=== PATIENT | male | born 1955 | race Caucasian/White ===

== ENCOUNTER → 2017-08-20 | Outpatient (CLI) | payer OTHER ==
[~2017-08-20] MED LIST: AMLO10TA2 PO; ASPI-496 PO; ATOR20TA PO; CETI10TA18 PO; CHOL200024 PO; CYAN10005 PO; CYAN250013 PO; HYDR25TA6 PO; LIDOCAINE 2%, 20ML ONE; METO-282 PO; METO100T5 PO; MORP10SU PR; OXYC10TA6 PO; PRAV20TA2 PO; SPIR50TA2 PO; ZOLP-413 PO; ZOLP10TA PO
[2017-08-20 12:14] LABS: HEMATOCRIT 42.1 % (39.2-51.8); HEMOGLOBIN 14.6 g/dL (13.7-18.0); WHITE BLOOD COUNT 7.2 x10^3/uL (3.4-10)
[2017-08-20 12:21] LABS: ASPARTATE AMINO TRANSFERASE 21 U/L (15-37); BLOOD UREA NITROGEN 14 mg/dL (7-18)
== END | disposition home or self-care (01) ==
LOC: STAR 11:05
PROVIDERS: ATTEND Neurological Surgery
DX: Z01.818 Encounter for other preprocedural examination (principal); I10 Essential (primary) hypertension; R79.1 Abnormal coagulation profile; M47.892 Other spondylosis, cervical region
CPT/HCPCS: 36415; 71020; 80053; 85025; 85610; 85730; 93005; J3490

== ENCOUNTER 2017-08-27 11:07 | Inpatient (IN) | payer OTHER ==
[~2017-08-27] VITALS: Ht 182.9 cm; Wt 122.4 kg
[~2017-08-27 11:07] MED LIST changes: -LIDOCAINE 2%, 20ML ONE
[2017-09-10] MEDS ORDERED: LACTATED RINGERS 1,000 ML IV SCH (06:22)
[2017-09-10 06:23] VITALS: BP 118/82
[2017-09-10] MEDS ORDERED: LIDOCAINE 1%, 2ML SQ PRN (06:30)
[2017-09-10] MEDS ORDERED: EPINEPHRINE 1 MG/ML, 1ML ONE (07:06)
[2017-09-10] MEDS ORDERED: BACITRACIN 50,000 UNIT ONE (07:06)
[2017-09-10] MEDS ORDERED: BUPIVACAINE/PF 0.5% ONE (07:06)
[2017-09-10] MEDS ORDERED: THROMBIN 20,000 UNIT VIAL TP ONE (07:06)
[2017-09-10] MEDS ORDERED: KETAMINE 10 MG/ML, 20ML ONE (07:18)
[2017-09-10] MEDS ORDERED: FENTANYL PF 250 MCG/5ML ONE (07:19)
[2017-09-10] MEDS ORDERED: HYDROmorphone 1 MG/ML, 1ML ONE ×2 (07:19→10:51)
[2017-09-10] MEDS ORDERED: PROPOFOL 150 ML ONE (07:37)
[2017-09-10] MEDS ORDERED: LIDOCAINE-MPF 2% ,5ML ONE (07:43)
[2017-09-10] MEDS ORDERED: ROCURONIUM 10 MG/ML ONE (07:43)
[2017-09-10] MEDS ORDERED: PHENYLEPHRINE 10 MG/ML ONE (07:43)
[2017-09-10] MEDS ORDERED: METOCLOPRAMIDE 5 MG/ML, 2ML ONE (07:43)
[2017-09-10] MEDS ORDERED: SUCCINYLCHOLINE 20 MG/ML, 10ML ONE (07:43)
[2017-09-10] MEDS ORDERED: CEFAZOLIN 1,000 MG ONE (07:43)
[2017-09-10] MEDS ORDERED: ONDANSETRON 2MG/ML, 2ML ONE (07:43)
[2017-09-10] MEDS ORDERED: DEXAMETHASONE 4 MG/ML, 1ML ONE (07:43)
[2017-09-10] MEDS ORDERED: LABETALOL 5MG/ML, 20ML IV PRN (08:30)
[2017-09-10] MEDS ORDERED: hydrALAzine 20 MG/ML, 1ML IV PRN (08:30)
[2017-09-10] MEDS ORDERED: OXYcodone 5 MG/5 ML ORAL.SOL UDC PO PRN (08:30)
[2017-09-10] MEDS ORDERED: MIDAZOLAM 1 MG/ML, 2ML IV PRN (08:30)
[2017-09-10] MEDS ORDERED: MEPERIDINE/PF 25MG/0.5ML IVPush PRN (08:30)
[2017-09-10] MEDS ORDERED: PROMETHAZINE 25 MG/ML, 1ML IV PRN (08:30)
[2017-09-10] MEDS ORDERED: ACETAMINOPHEN 325 MG TABLET PO PRN (08:30)
[2017-09-10] MEDS ORDERED: ONDANSETRON 2MG/ML, 2ML IVPush PRN (08:30)
[2017-09-10] MEDS ORDERED: FENTANYL PF 100 MCG/2ML IV PRN (08:30)
[2017-09-10] MEDS ORDERED: PROPOFOL 50 ML ONE (09:25)
[2017-09-10] MEDS ORDERED: OXYcodone 5 MG/5 ML ORAL.SOL UDC ONE (10:50)
[2017-09-10] MEDS ORDERED: ACETAMINOPHEN 650 MG/20.3 ML UDC ONE (10:51)
[2017-09-10] MEDS ORDERED: ACETAMINOPHEN 325 MG TABLET ONE (10:51)
[2017-09-10] MEDS ORDERED: METHOCARBAMOL 1000MG/10 ML IVPB ONE (11:00)
[2017-09-10] MEDS: HYDROmorphone 1 MG/ML, 1ML IV PRN ×2 (11:00→11:05)
[2017-09-10] MEDS: DIAZEPAM 5 MG/ML, 2ML IVPush PRN ×2 (11:20→11:40)
[2017-09-10] MEDS ORDERED: METHOCARBAMOL 1,000 MG in DEXTROSE 5% 100 ML IV ONE (11:30)
[2017-09-10 12:21] VITALS: BP 103/68
[2017-09-10] MEDS ORDERED: ZOLPIDEM 10MG TABLET PO PRN (13:30)
[2017-09-10] MEDS ORDERED: DIPHENHYDRAMINE 50 MG CAPSULE PO PRN (13:30)
[2017-09-10] MEDS ORDERED: DIPHENHYDRAMINE 50 MG/ML, 1ML IM PRN (13:30)
[2017-09-10] MEDS ORDERED: MAGNESIUM HYDROXIDE 8%, 30ML UDC PO PRN (13:30)
[2017-09-10] MEDS ORDERED: ONDANSETRON 2MG/ML, 2ML IV PRN (13:30)
[2017-09-10] MEDS ORDERED: HYDROmorphone 2 MG/ML, 1ML IM PRN (13:30)
[2017-09-10] MEDS ORDERED: BISACODYL 10 MG SUPP PR PRN (13:30)
[2017-09-10] MEDS: NS + 20MEQ KCL 1,000 ML IV SCH (13:43)
[2017-09-10] MEDS: OXYcodone IR 5MG TABLET PO PRN ×2 (13:47→17:47)
[2017-09-10] MEDS: CEFAZOLIN PMX 1GM/50ML 50 ML IVPB SCH ×2 (15:23→23:18)
[2017-09-10 18:58] VITALS: BP 112/72
[2017-09-10] MEDS: METHOCARBAMOL 750 MG in DEXTROSE 5% 100 ML IV SCH (19:57)
[2017-09-10] MEDS ORDERED: ATORVASTATIN 20 MG TABLET PO SCH (21:00)
[2017-09-10] MEDS: SPIRONOLACTONE 50 MG TABLET PO SCH (21:28)
[2017-09-11] MEDS: OXYcodone IR 5MG TABLET PO PRN ×4 (00:09→15:09)
[2017-09-11] MEDS: NS + 20MEQ KCL 1,000 ML IV SCH ×2 (00:10→13:36)
[2017-09-11] MEDS: METHOCARBAMOL 750 MG in DEXTROSE 5% 100 ML IV SCH ×2 (03:49→12:33)
[2017-09-11 03:55] VITALS: BP 135/85
[2017-09-11] MEDS ORDERED: METOPROLOL SUCCINATE 100 MG TAB.ER.24H PO SCH (06:00)
[2017-09-11 07:27] VITALS: BP 113/72
[2017-09-11 08:32] VITALS: BP 115/69
[2017-09-11] MEDS: SPIRONOLACTONE 50 MG TABLET PO SCH (08:34)
[2017-09-11] MEDS ORDERED: CHOLECALCIFEROL 1,000 UNIT TABLET PO SCH (09:00)
[2017-09-11] MEDS ORDERED: CETIRIZINE 10 MG TABLET PO SCH (09:00)
[2017-09-11] MEDS ORDERED: SENNA/DOCUSATE TABLET PO SCH (09:00)
[2017-09-11] MEDS ORDERED: CYANOCOBALAMIN 1,000 MCG TABLET PO SCH (09:00)
[2017-09-11] MEDS ORDERED: AMLODIPINE 5 MG TABLET PO SCH (09:00)
[2017-09-11 14:00] VITALS: BP 99/65
[2017-09-11 16:12] VITALS: BP 118/73
[2017-09-11] MEDS ORDERED: MORP-52 PO (17:23)
[2017-09-11] MEDS ORDERED: CALC300T5 PO (17:25)
[2017-09-11] MEDS ORDERED: DOCU100C33 PO (17:26)
[2017-09-11] MEDS ORDERED: SENN-99 PO (17:27)
[2017-09-11] MEDS ORDERED: METH750T2 PO (17:27)
[2017-09-11] MEDS ORDERED: METH4TAB2 PO (17:28)
[2017-09-12] MEDS ORDERED: METHOCARBAMOL 750 MG TABLET PO SCH (19:00)
== END 2017-09-11 18:07 | disposition home or self-care (01) | DRG 473 ==
LOC: ORIP 09-10 05:41 → 4NOR 09-10 12:12
PROVIDERS: ADMIT Neurological Surgery; ATTEND Neurological Surgery
PROC: 0RB30ZZ Excision of Cervical Vertebral Disc, Open Approach (ICD-10-PCS; 2017-09-10)
PROC: 4A1134G Monitoring of Peripheral Nervous Electrical Activity, Intraoperative, Percutaneous Approach (ICD-10-PCS; 2017-09-10)
PROC: 0RG20A0 Fusion of 2 or more Cervical Vertebral Joints with Interbody Fusion Device, Anterior Approach, Anterior Column, Open Approach (ICD-10-PCS; principal; 2017-09-10 07:30)
DX: M47.22 Other spondylosis with radiculopathy, cervical region (principal); M48.02 Spinal stenosis, cervical region; M25.78 Osteophyte, vertebrae; M50.123 Cervical disc disorder at C6-C7 level with radiculopathy
CPT/HCPCS: 36415; 72040; 86850; 86900; C1713; J0171; J0690; J1100; J1170; J2405; J2704; J3010; J3360; J3480; J3490; J0330; J2370; J2765; J2800; J7120

== ENCOUNTER 2019-01-25 10:51 | Emergency (ER) | payer OTHER ==
[~2019-01-25] VITALS: Ht 182.9 cm; Wt 113.7 kg
[~2019-01-25 10:51] MED LIST changes: -AMLO10TA2 PO; +AMLO10TA8 PO; +CALC300T5 PO; +DOCU100C33 PO; +METH4TAB2 PO; +METH750T2 PO; +METH750T87 PO; +MORP-52 PO; +OXYC5CAP2 PO; +SENN-177 PO; +SENN-99 PO; -SPIR50TA2 PO; +SPIR50TA4 PO
[2019-01-25 10:53] VITALS: BP 139/80
[2019-01-25] MEDS ORDERED: FLUTICASONE (11:02)
[2019-01-25] MEDS ORDERED: HYDROCODONE (11:02)
[2019-01-25] MEDS ORDERED: RABIES VACCINE /PF 2.5 UNITS IM-VACC ONE (11:30)
== END 2019-01-25 12:14 | disposition home or self-care (01) ==
LOC: ED 12:09
DX: S31.815D Open bite of right buttock, subsequent encounter (principal); I10 Essential (primary) hypertension
CPT/HCPCS: 90471; 90675

== ENCOUNTER 2019-01-29 13:30 | Emergency (ER) | payer OTHER ==
[~2019-01-29] VITALS: Ht 182.9 cm; Wt 114.0 kg
[~2019-01-29 13:30] MED LIST changes: +FLUTICASONE; +HYDROCODONE
[2019-01-29 14:11] VITALS: BP 137/82
[2019-01-29] MEDS ORDERED: RABIES VACCINE /PF 2.5 UNITS IM-VACC STA (14:11)
== END 2019-01-29 15:05 | disposition home or self-care (01) ==
LOC: ED 15:00
DX: S30.870D Other superficial bite of lower back and pelvis, subsequent encounter (principal)
CPT/HCPCS: 90471; 90675

== ENCOUNTER 2019-02-05 11:45 | Emergency (ER) | payer OTHER ==
[~2019-02-05] VITALS: Ht 182.9 cm; Wt 111.7 kg
[2019-02-05] MEDS ORDERED: RABIES VACCINE /PF 2.5 UNITS IM-VACC ONE (12:30)
[2019-02-05 12:54] VITALS: BP 120/84
--- NOTE | 2019-02-05 12:54 | NUR ---
Patient/Caregiver given discharge instructions and they have confirmed that they understand the instructions. Patient ambulatory with steady gait.
== END 2019-02-05 12:45 | disposition home or self-care (01) ==
LOC: ED 12:42
DX: S31.815D Open bite of right buttock, subsequent encounter (principal); W54.0XXD Bitten by dog, subsequent encounter; I10 Essential (primary) hypertension; Z87.891 Personal history of nicotine dependence; E78.00 Pure hypercholesterolemia, unspecified
CPT/HCPCS: 90471; 90675; 99283